=== PATIENT | female | born 1985 | race Caucasian/White ===

== ENCOUNTER 2019-03-09 12:46 | Emergency (ER) | payer BC, OTHER ==
[2019-03-09] MEDS ORDERED: ALBUTEROL 2.5 MG/3 ML NEB SOL ONE (13:42)
[2019-03-09] MEDS ORDERED: IPRATROPIUM BROM 0.5MG/2.5ML ONE (13:43)
--- NOTE | 2019-03-09 14:23 | RAD REPORT ---
EXAM DESCRIPTION: RAD - Chest Pa And Lat (2 Views) - 03/09/2019 2:12 pm CLINICAL HISTORY: COUGH, shortness of breath, flu-like symptoms COMPARISON: No comparisons TECHNIQUE: Frontal and lateral views of the chest were obtained. FINDINGS: The lungs are clear. Heart size is normal and central vasculature is within normal limit s. No pleural effusion or pneumothorax seen. No acute bony finding noted. No aortic abnormality. IMPRESSION: No acute cardiopulmonary process.
--- NOTE | 2019-03-09 15:11 | ER ---
Nurse's Notes [facility] Name: Nat Cortez Age: 33 yrs Sex: Female : 1985 Arrival Date: 03/09/2019 Time: 12:48 Bed 20 Private MD: Diagnosis: Acute upper respiratory infection, unspecified;Unspecified asthma with (acute) exacerbation Presentation: 03/09 13:04 Presenting complaint: Patient states: being seen by Dr. Rascon on Tuesday and aa5 prescribed Tamiflu and Cefuroxime. Pt states "he said I had the flu but didn't do the test for it but I am not getting any better". Pt also reports cough and reports pain to chest with cough. Pt reports taking Tylenol at 1200. Transition of care: patient was not received from another setting of care. Onset of symptoms was February 2019. Risk Assessment: Do you want to hurt yourself or someone else? Patient reports no desire to harm self or others. Initial Sepsis Screen: Does the patient meet any 2 criteria? No. Patient's initial sepsis screen is negative. Does the patient have a suspected source of infection? No. Patient's initial sepsis screen is negative. Care prior to arrival: None. 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 - Social history:: Smoking status: Patient/guardian denies using tobacco. - Ebola Screening: : No symptoms or risks identified at this time. Screenin:35 Abuse screen: Denies threats or abuse. Denies injuries from another. Nutritional hb screening: No deficits noted. Tuberculosis screening: No symptoms or risk factors identified. Fall Risk None identified. Assessment: 13:35 General: Appears in no apparent distress. Behavior is calm, cooperative. Pain: Pain hb currently is 4 out of 10 on a pain scale. Neuro: Level of Consciousness is awake, alert, obeys commands, Oriented to person, place, time, situation. Cardiovascular: Capillary refill < 3 seconds Patient's skin is warm and dry. Rhythm is regular. Respiratory: Reports cough that is non-productive, Airway is patent Respiratory effort is even, unlabored, Respiratory pattern is regular, symmetrical, Breath sounds are clear bilaterally. GI: No signs and/or symptoms were reported involving the gastrointestinal system. : No signs and/or symptoms were reported regarding the genitourinary system. EENT: No signs and/or symptoms were reported regarding the EENT system. Derm: Skin is intact. Musculoskeletal: No signs and/or symptoms reported regarding the musculoskeletal system. 14:30 Reassessment: Patient appears in no apparent distress at this time. Patient and/or hb family updated on plan of care and expected duration. Pain level reassessed. Patient is alert, oriented x 3, equal unlabored respirations, skin warm/dry/pink. 15:23 Reassessment: Patient appears in no apparent distress at this time. Patient and/or hb family updated on plan of care and expected duration. Pain level reassessed. Patient is alert, oriented x 3, equal unlabored respirations, skin warm/dry/pink. Vital Signs: 13:07 BP 117 / 86; Pulse 88; Resp 18 S; Temp 98.9(O); Pulse Ox 99% on R/A; Weight 70.31 kg aa5 (R); Height 5 ft. 3 in. (160.02 cm) (R); Pain 4/10; 15:00 BP 112 / 80; Pulse 84; Resp 16; Pulse Ox 100% on R/A; hb 13:07 Body Mass Index 27.46 (70.31 kg, 160.02 cm) aa5 ED Course: 12:48 Patient arrived in ED. as 13:04 Arm band placed on. aa5 13:06 Triage completed. aa5 13:26 Brandyn Rausch PA is PHCP. cp 13:27 Brandyn Delgado MD is Attending Physician. cp 13:35 Patient has correct armband on for positive identification. Bed in low position. Call hb light in reach. 13:39 Mary Momin, PHOEBE is Primary Nurse. hb 14:10 XRAY Chest Pa And Lat (2 Views) In Process Unspecified. EDMS 15:24 No provider procedures requiring assistance completed. Patient did not have IV access hb during this emergency room visit. Administered Medications: 13:45 Drug: Albuterol 2.5 mg Route: Inhalation; hb 14:40 Follow up: Response: No adverse reaction hb 13:45 Drug: AtroVENT Aerosol 0.5 mg Route: Inhalation; hb 14:40 Follow up: Response: No adverse reaction hb 15:12 Drug: Tessalon Perle 200 mg Route: PO; hb 15:22 Follow up: Response: Medication administered at discharge. hb Outcome: 15:10 Discharge ordered by MD. cp 15:24 Discharged to home ambulatory. hb 15:24 Condition: stable 15:24 Discharge instructions given to patient, Instructed on discharge instructions, follow up and referral plans. medication usage, Demonstrated understanding of instructions, follow-up care, medications, Prescriptions given X 4. 15:38 Patient left the ED. hb Signatures: Dispatcher [employer] EDYee Parker Audri, RN RN aa5 Brandyn Rausch PA PA Mary Millard, RN RN hb
--- NOTE | 2019-03-09 15:11 | EDPHYS ---
Physician Documentation [facility] Name: Nat Cortez Age: 33 yrs Sex: Female : 1985 Arrival Date: 03/09/2019 Time: 12:48 Bed 20 Private MD: DICKSON Physician Brandyn Delgado HPI: 03/09 13:45 This 33 yrs old Female presents to ER via Ambulatory with complaints of cp Shortness Of Breath - flu+. 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 - Social history:: Smoking status: Patient/guardian denies using tobacco. - Ebola Screening: : No symptoms or risks identified at this time. ROS: 14:00 Constitutional: Negative for body aches, chills, fever, poor PO intake. cp 14:00 Eyes: Negative for injury, pain, redness, and discharge. cp 14:00 ENT: Positive for sore throat, Negative for drainage from ear(s), ear pain, difficulty swallowing, difficulty handling secretions. 14:00 Cardiovascular: Positive for chest pain, with cough, Negative for edema, palpitations. 14:00 Respiratory: Positive for cough, "sounds productive". 14:00 Abdomen/GI: Negative for abdominal pain, vomiting, diarrhea, constipation. 14:00 Back: Negative for pain at rest, pain with movement. 14:00 : Negative for urinary symptoms. 14:00 Skin: Negative for rash. 14:00 Neuro: Negative for altered mental status, headache, weakness. 14:00 All other systems are negative. Exam: 14:10 Head/Face: Normocephalic, atraumatic. cp 14:10 Constitutional: The patient appears in no acute distress, alert, awake, non-toxic, well developed, well nourished. 14:10 Eyes: Periorbital structures: appear normal, Conjunctiva: normal, no exudate, no injection, Lids and lashes: appear normal, bilaterally. 14:10 ENT: External ear(s): are unremarkable, Ear canal(s): are normal, clear, TM's: bulging, is not appreciated, bilaterally, dullness, bilaterally, erythema, is not appreciated, bilaterally, Nose: is normal, Mouth: Lips: moist, Oral mucosa: moist, Posterior pharynx: Airway: no evidence of obstruction, patent, Tonsils: no enlargement, no exudate, swelling, is not appreciated, erythema, that is mild, exudate, is not appreciated. 14:10 Neck: ROM/movement: is normal, no meningismus, no nuchal rigidity. 14:10 Chest/axilla: Inspection: normal, Palpation: is normal, no crepitus, no tenderness. 14:10 Cardiovascular: Rate: normal, Rhythm: regular, Edema: is not appreciated, JVD: is not appreciated. 14:10 Respiratory: the patient does not display signs of respiratory distress, Respirations: normal, no use of accessory muscles, no retractions, no splinting, no tachypnea, labored breathing, is not present, Breath sounds: bronchial sounds, that are mild, are heard diffusely, decreased breath sounds, are not appreciated, stridor, is not appreciated, + upper airway congestion. wheezing: that is mild, is heard diffusely. 14:10 Abdomen/GI: Exam negative for discomfort, distension, guarding, Inspection: abdomen appears normal. 14:10 Back: pain, is absent, ROM is normal. Vital Signs: 13:07 BP 117 / 86; Pulse 88; Resp 18 S; Temp 98.9(O); Pulse Ox 99% on R/A; Weight 70.31 kg aa5 (R); Height 5 ft. 3 in. (160.02 cm) (R); Pain 4/10; 15:00 BP 112 / 80; Pulse 84; Resp 16; Pulse Ox 100% on R/A; hb 13:07 Body Mass Index 27.46 (70.31 kg, 160.02 cm) aa5 MDM: 13:28 Patient medically screened. [facility] 14:28 Data reviewed: vital signs, nurses notes, lab test result(s), radiologic studies, plain cp films. 03/09 13:37 Order name: Influenza Screen (a \\T\\ B); Complete Time: 14:13 03/09 14:13 Interpretation: Reviewed. 03/09 13:37 Order name: XRAY Chest Pa And Lat (2 Views); Complete Time: 14:28 03/09 14:28 Interpretation: Report reviewed. cp Administered Medications: 13:45 Drug: Albuterol 2.5 mg Route: Inhalation; hb 14:40 Follow up: Response: No adverse reaction hb 13:45 Drug: AtroVENT Aerosol 0.5 mg Route: Inhalation; hb 14:40 Follow up: Response: No adverse reaction hb 15:12 Drug: Tessalon Perle 200 mg Route: PO; hb 15:22 Follow up: Response: Medication administered at discharge. hb Disposition: 03/09/19 15:10 Discharged to Home. Impression: Acute upper respiratory infection, unspecified, Unspecified asthma with (acute) exacerbation. - Condition is Stable. - Discharge Instructions: Asthma, Adult, Upper Respiratory Infection, Adult. - Prescriptions for Symbicort 80- 4.5 mcg/actuation Inhalation HFA aerosol inhaler - inhale 2 puff by INHALATION route 2 times per day; 1 Inhaler. Tessalon Perles 100 mg Oral Capsule - take 2 capsule by ORAL route every 8 hours As needed; 20 capsule. Prednisone 20 mg Oral Tablet - take 2 tablet by ORAL route once daily for 5 days; 10 tablet. Albuterol Sulfate 90 mcg/actuation - inhale 1-2 puff by INHALATION route every 4-6 hours; 1 Inhaler. - Medication Reconciliation Form, Thank You Letter, Antibiotic Education, Prescription Opioid Use form. - Follow up: Private Physician; When: 2 - 3 days; Reason: Recheck today's complaints. - Problem is new. - Symptoms have improved. Addendum: 03/12/2019 08:11 Co-signature as Attending Physician, Brandyn Delgado MD I agree with the assessment and c huddleston plan of care. Signatures: Dispatcher [employer] Brandyn Villalobos MD MD cha Calderon, Audri, RN RN aa5 Brandyn Rausch PA PA Mary Millard, PHOEBE RN Corrections: (The following items were deleted from the chart) 03/09 15:18 15:10 03/09/2019 15:10 Discharged to Home. Impression: Acute upper respiratory cp infection, unspecified. Condition is Stable. Forms are Medication Reconciliation Form, Thank You Letter, Antibiotic Education, Prescription Opioid Use. Follow up: Private Physician; When: 2 - 3 days; Reason: Recheck today's complaints. Problem is new. Symptoms have improved. cp 15:38 15:18 03/09/2019 15:10 Discharged to Home. Impression: Acute upper respiratory hb infection, unspecified; Unspecified asthma with (acute) exacerbation. Condition is Stable. Discharge Instructions: Upper Respiratory Infection, Adult, Asthma, Adult. Prescriptions for Symbicort 80-4.5 mcg/actuation Inhalation HFA aerosol inhaler - inhale 2 puff by INHALATION route 2 times per day; 1 Inhaler, Tessalon Perles 100 mg Oral Capsule - take 2 capsule by ORAL route every 8 hours As needed; 20 capsule, Prednisone 20 mg Oral Tablet - take 2 tablet by ORAL route once daily for 5 days; 10 tablet, Albuterol Sulfate 90 mcg/actuation - inhale 1-2 puff by INHALATION route every 4-6 hours; 1 Inhaler. and Forms are Medication Reconciliation Form, Thank You Letter, Antibiotic Education, Prescription Opioid Use. Follow up: Private Physician; When: 2 - 3 days; Reason: Recheck today's complaints. Problem is new. Symptoms have improved. cp
[2019-03-09] MEDS ORDERED: BENZONATATE 100 MG CAP PO ONE (15:13)
[2019-03-09 17:14] VITALS: TEMP 98.9
[2019-03-09 17:16] VITALS: BP 112/80; O2SAT 100
== END 2019-03-09 15:38 | disposition home or self-care (01) ==
LOC: ER 12:46
DX: J06.9 Acute upper respiratory infection, unspecified (principal); J45.901 Unspecified asthma with (acute) exacerbation
CPT/HCPCS: 71046; 87804; 99284

== ENCOUNTER 2020-12-08 15:00 | Emergency (ER) | payer BC, OTHER ==
[2020-12-08] MEDS ORDERED: IBUPROFEN 400 MG TAB ONE (16:31)
[2020-12-08] MEDS ORDERED: IBUPROFEN 200 MG TAB PO ONE (16:31)
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
--- NOTE | 2020-12-08 16:58 | RAD REPORT ---
EXAM DESCRIPTION: RAD - Femur Left - 12/08/2020 4:37 pm CLINICAL HISTORY: Left leg pain FINDINGS: No fracture is seen
--- NOTE | 2020-12-08 16:59 | RAD REPORT ---
EXAM DESCRIPTION: RAD - Humerus Right - 12/08/2020 4:37 pm CLINICAL HISTORY: Right arm pain FINDINGS: No fracture is seen
--- NOTE | 2020-12-08 16:59 | RAD REPORT ---
EXAM DESCRIPTION: RAD - Humerus Left - 12/08/2020 4:37 pm CLINICAL HISTORY: Left arm pain FINDINGS: No fracture is seen
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
[2020-12-08 17:32] VITALS: BP 119/97; TEMP 97.2; O2SAT 100
== END 2020-12-08 17:26 | disposition home or self-care (01) ==
LOC: ER 15:00
DX: R10.84 Generalized abdominal pain (principal); M79.622 Pain in left upper arm; M79.621 Pain in right upper arm; V49.40XA Driver injured in collision with unspecified motor vehicles in traffic accident, initial encounter; Z88.8 Allergy status to other drugs, medicaments and biological substances
CPT/HCPCS: 70450; 72125; 71260; 74177; 73060 ×2; 73552; 99284; Q9967

== ENCOUNTER 2024-04-02 17:18 | Emergency (ER) | payer OTHER ==
--- OUTSIDE RECORDS SUMMARY | 2024-04-02 17:21 | XMS REPORT | Continuity of Care Document ---
Author Name Unknown Address [address] [facility] [address] [place] [address] [facility] Address [address] [facility] [facility] [address] [address] [place] [address] Care Team Providers Care Ophthalmology Technician Name Role Phone Anjana Servin Attending Clinician Unavailable Marissa Sarmiento Attending Clinician Unavailrama e Anjana Servin Admitting Clinician Unavailable Marissa Sarmiento Admitting Clinician Unavailabl e Payers Payer Name Policy Type Policy Number Effective Date Expirati on Date Source Allergies, Adverse Reactions, Alerts Allergy Name Allergy Type Status Severity Reaction(s) Onset Date Inactive Date Treating Clinician Comments Source dextrome thorphan HBr DA Active [place] HIVES 24 00:00: 00 [facility] pseudoep hedrine HCl DA Active [place] HIVES 3-24 00:00: 00 [facility] acetamin ophen DA Active [place] HIVES 324 00:00: 00 [facility] doxylami ne DA Active [place] HIVES 324 00:00: 00 [facility] dextrome thorphan HBr DA Active [place] 324 00:00: 00 [facility] pseudoep hedrine HCl DA Active [place] 324 00:00: 00 [facility] acetamin ophen DA Active [place] 324 00:00: 00 [facility] doxylami ne DA Active [place] 24 00:00: 00 [facility] dextrome thorphan HBr DA Active [place] HIVES 19 00:00: 00 [facility] pseudoep hedrine HCl DA Active [place] HIVES 04-18 00:00: 00 [facility] acetamin ophen DA Active [place] HIVES 04-18 00:00: 00 [facility] doxylami ne DA Active [place] HIVES 04-18 00:00: 00 [facility] dextrome thorphan HBr DA Active [place] 04-18 00:00: 00 [facility] pseudoep hedrine HCl DA Active [place] 04-18 00:00: 00 [facility] acetamin ophen DA Active [place] 04-18 00:00: 00 [facility] doxylami ne DA Active [place] 04-18 00:00: 00 [facility] Procedures Procedure Date / Time Performed Performing Clinicia n Source [id number] 2020-08-20 00:00:00 [facility] [id number] 2020-08-20 00:00:00 [facility]BPR [facility] [id number] 2020-08-20 00:00:00 DEBPR [facility] [id number] 2020-05-22 00:00:00 HAIZI [facility] Encounters Start Date/Time End Date/Time Encounter Type Admission Type Attending Clinicians Care Facility Care Department Encounter ID Source 2020-05-30 02:42:17 Inpatient Anjana Lopes [facility] [id number] 2020-08-20 07:39:00 2020-08-22 10:40:00 Inpatient Marissa Romeo [facility] [id number] [facility] 2020-05-21 14:45:57 2020-05-21 14:45:57 Outpatient Anjana Servin [facility] [id number] [facility] Results Test Description Test Time Test Comments Results Result Co mments Source HGB [id number] 07:47:00* Test Item Value Reference Range Interpretation Comme nts HEMOGLOBIN (test code = HGB) 7.9 g/dL 10.1-13.8 L Results verified by repeat analysis HEMATOCRIT (test code = HCT) 25.2 % 32.5-41.8 L Results verified by repeat analysis AG HEPATITIS B [id number] 09:23:00* Test Item Value Reference Range Interpretation Comme nts AG HEPATITIS B SURFACE (test code = HBSAG) NONREACTIVE NONREACTIVE IS CONSENT FORM SIGNED FOR HIV TESTING? YAB HEPATITIS C [id number] 09:23:00* Test Item Value Reference Range Interpretation Comme nts AB HEPATITIS C (test code = HCVAB) NONREACTIVE NONREACTIVE SIGNAL TO CUTOFF (test code = CUTOFF) 0.04 <0.80 N IS CONSENT FORM SIGNED FOR HIV TESTING? YAB [id number] 09:23:00* Test Item Value Reference Range Interpretation Comme nts AB TREPONEMA (test code = TREPAB) NONREACTIVE NONREACTIVE IS CONSENT FORM SIGNED FOR HIV TESTING? YAB HIV 1 09:23:00* Test Item Value Reference Range Interpretation Comme nts AB HIV 1 2 (test code = [id number]) NONREACTIVE NONREACTIVE Done by [employer] HIV Ag/Ab Combo Screen IS CONSENT FORM SIGNED FOR HIV TESTING? YAG HEPATITIS B [id number] 08:56:00* Test Item Value Reference Range Interpretation Comme nts AG HEPATITIS B SURFACE (test code = HBSAG) NONREACTIVE NONREACTIVE IS CONSENT FORM SIGNED FOR HIV TESTING? YAB HEPATITIS C [id number] 08:56:00* Test Item Value Reference Range Interpretation Comme nts AB HEPATITIS C (test code = HCVAB) NONREACTIVE SIGNAL TO CUTOFF (test code = CUTOFF) <0.80 IS CONSENT FORM SIGNED FOR HIV TESTING? YAB [id number] 08:56:00* Test Item Value Reference Range Interpretation Comme nts AB TREPONEMA (test code = TREPAB) NONREACTIVE NONREACTIVE IS CONSENT FORM SIGNED FOR HIV TESTING? YAB HIV 1 08:56:00* Test Item Value Reference Range Interpretation Comme nts AB HIV 1 2 (test code = [id number]) NONREACTIVE IS CONSENT FORM SIGNED FOR HIV TESTING? YCOMPREHENSIVE METABOLIC [id number] 08:43:00* Test Item Value Reference Range Interpretation Comme nts SODIUM (test code = NA) 140 mEq/L 135-145 N POTASSIUM (test code = K) 3.5 mEq/L 3.5-5.0 N CHLORIDE (test code = CL) 104 mEq/L 100-115 N CARBON DIOXIDE (test code = CO2) 23 mEq/L 22-31 N ANION GAP (test code = GAP) 16.10 10-20 N GLUCOSE (test code = GLU) 98 mg/dL 65-110 N BLOOD UREA NITROGEN (test co de = BUN) 9 mg/dL 7-18 N GLOMERULAR FILTRATION RATE ( test code = GFR) 96 ml/min >60 N CREATININE (test code = CREAT) 0.7 mg/dL 0.5-1.0 N TOTAL PROTEIN (test code = PROT) 6.9 gm/dL 6.3-8.2 N ALBUMIN (test code = ALB) 2.9 gm/dL 3.4-4.8 L CALCIUM (test code = CA) 8.6 mg/dL 8.4-10.2 N BILIRUBIN TOTAL (test code = BILT) 0.2 mg/dL 0.2-1.0 N SGOT/AST (test code = AST) 14 units/L 15-37 L SGPT/ALT (test code = ALT) 13 units/L 12-78 N ALKALINE PHOSPHATASE TOTAL ( test code = ALKP) 116 units/L 46-116 N CBC W/AUTO [id number] 08:22:00* Test Item Value Reference Range Interpretation Comme nts WHITE BLOOD CELL (test code = WBC) 10.9 K/mm3 6.5-12.3 N RED BLOOD CELL (test code = RBC) 3.72 M/mm3 3.51-4.69 N HEMOGLOBIN (test code = HGB) 9.9 g/dL 10.1-13.8 L HEMATOCRIT (test code = HCT) 32.0 % 32.5-41.8 L MEAN CELL VOLUME (test code = MCV) 86.0 fL 84.6-96.6 N MEAN CELL HGB (test code = MCH) 26.6 pg 27.3-33.9 L MEAN CELL HGB CONCETRATION ( test code = MCHC) 30.9 gm/dL 32.0-34.2 L RED CELL DISTRIBUTION WIDTH (test code = RDW) 13.4 % 12.2-16.3 N PLATELET COUNT (test code = PLT) 295 K/mm3 134-363 N MEAN PLATELET VOLUME (test c ode = MPV) 10.2 fL 9.2-12.7 N NEUTROPHIL % (test code = NT%) 70.0 % 57.9-77.3 N LYMPHOCYTE % (test code = LY%) 19.2 % 14.5-29.7 N MONOCYTE % (test code = MO%) 9.3 % 3.6-10.2 N EOSINOPHIL % (test code = EO%) 0.6 % 0.0-3.0 N BASOPHIL % (test code = BA%) 0.2 % 0.1-0.9 N NEUTROPHIL # (test code = NT#) 7.6 K/mm3 LYMPHOCYTE # (test code = LY#) 2.1 K/mm3 MONOCYTE # (test code = MO#) 1.0 K/mm3 EOSINOPHIL # (test code = EO#) 0.07 K/mm3 BASOPHIL # (test code = BA#) 0.0 K/mm3 RBC MORPHOLOGY REQUIRED (janet t code = RBCM) NORMAL NORMAL PLATELET MORPHOLOGY REQUIRED (test code = PLTMR) NORMAL NORMAL COVID 19 Asymptomatic IH [id number] 22:04:00* Test Item Value Reference Range Interpretation Comme nts COVID 19 Asymptomatic IH AG (test code = COVNONPUIAG) NEGATIVE NEGATIVE This test has be en authorized only for the detection ofproteins from SARS-CoV-2, not for any other viruses orpathogens. Negative results should be treated as presumptive andconfirmed with a molecular assay, if necessary for patientmanagement. Negative results do not rule out COVID-19 andshould not be used as the sole basis for treatment orpatient management decisions, including infection controldecisions. Negative results should be considered in thecontext of a patient's recent exposures, history and thepresence of clinical signs and symptoms consistent withCOVID-19. This test has not been FDA cleared or approved; the test hasbeen authorized by FDA under an Emergency Use Authorization(EUA) for use by laboratories certified under the CLIA thatmeet the requirements to perform moderate, high or waivedcomplexity tests. This test is authorized for use at thePoint of Care (POC), i.e., in patient care settingsoperating under a CLIA Certificate of Waiver, Certificate ofCompliance, or Certificate of Accreditation. This test is only authorized for the duration of thedeclaration that circumstances exist justifying theauthorization of emergency use of in vitro diagnostic testsfor detection and/or diagnosis of COVID-19 under Culfmfo654(b)(1) of the Act, 21 U.S.C. 360bbb-3(b)(1), unless theauthorization is terminated or revoked sooner. AG HEPATITIS B [id number] 20:38:00* Test Item Value Reference Range Interpretation Comme nts AG HEPATITIS B SURFACE (test code = HBSAG) NONREACTIVE NONREACTIVE IS CONSENT FORM SIGNED FOR HIV TESTING? YAB HEPATITIS C [id number] 20:38:00* Test Item Value Reference Range Interpretation Comme nts AB HEPATITIS C (test code = HCVAB) NONREACTIVE NONREACTIVE SIGNAL TO CUTOFF (test code = CUTOFF) 0.02 <0.80 N IS CONSENT FORM SIGNED FOR HIV TESTING? YAB [id number] 20:38:00* Test Item Value Reference Range Interpretation Comme nts AB TREPONEMA (test code = TREPAB) NONREACTIVE NONREACTIVE IS CONSENT FORM SIGNED FOR HIV TESTING? YAB HIV 1 20:38:00* Test Item Value Reference Range Interpretation Comme nts AB HIV 1 2 (test code = [id number]) NONREACTIVE NONREACTIVE Done by [employer] HIV Ag/Ab Combo Screen IS CONSENT FORM SIGNED FOR HIV TESTING? YCBC W/AUTO [id number] 20:29:00* Test Item Value Reference Range Interpretation Comme nts WHITE BLOOD CELL (test code = WBC) 12.1 K/mm3 6.5-12.3 N RED BLOOD CELL (test code = RBC) 3.47 M/mm3 3.51-4.69 L HEMOGLOBIN (test code = HGB) 10.5 g/dL 10.1-13.8 N HEMATOCRIT (test code = HCT) 31.7 % 32.5-41.8 L MEAN CELL VOLUME (test code = MCV) 91.4 fL 84.6-96.6 N MEAN CELL HGB (test code = MCH) 30.3 pg 27.3-33.9 N MEAN CELL HGB CONCETRATION ( test code = MCHC) 33.1 gm/dL 32.0-34.2 N RED CELL DISTRIBUTION WIDTH (test code = RDW) 13.3 % 12.2-16.3 N PLATELET COUNT (test code = PLT) 266 K/mm3 134-363 N IMMATURE PLATELET FRACTION ( test code = IPF) 2.5 % 0.0-10.8 N MEAN PLATELET VOLUME (test c ode = MPV) 10.3 fL 9.2-12.7 N NEUTROPHIL % (test code = NT%) 79.6 % 57.9-77.3 H LYMPHOCYTE % (test code = LY%) 13.5 % 14.5-29.7 L MONOCYTE % (test code = MO%) 6.1 % 3.6-10.2 N EOSINOPHIL % (test code = EO%) 0.3 % 0.0-3.0 N BASOPHIL % (test code = BA%) 0.1 % 0.1-0.9 N NEUTROPHIL # (test code = NT#) 9.6 K/mm3 LYMPHOCYTE # (test code = LY#) 1.6 K/mm3 MONOCYTE # (test code = MO#) 0.7 K/mm3 EOSINOPHIL # (test code = EO#) 0.04 K/mm3 BASOPHIL # (test code = BA#) 0.0 K/mm3 RBC MORPHOLOGY REQUIRED (janet t code = RBCM) NORMAL NORMAL PLATELET MORPHOLOGY REQUIRED (test code = PLTMR) NORMAL NORMAL AG HEPATITIS B [id number] 20:06:00* Test Item Value Reference Range Interpretation Comme nts AG HEPATITIS B SURFACE (test code = HBSAG) NONREACTIVE NONREACTIVE IS CONSENT FORM SIGNED FOR HIV TESTING? YAB HEPATITIS C [id number] 20:06:00* Test Item Value Reference Range Interpretation Comme nts AB HEPATITIS C (test code = HCVAB) NONREACTIVE SIGNAL TO CUTOFF (test code = CUTOFF) <0.80 IS CONSENT FORM SIGNED FOR HIV TESTING? YAB [id number] 20:06:00* Test Item Value Reference Range Interpretation Comme nts AB TREPONEMA (test code = TREPAB) NONREACTIVE NONREACTIVE IS CONSENT FORM SIGNED FOR HIV TESTING? YAB HIV 1 20:06:00* Test Item Value Reference Range Interpretation Comme nts AB HIV 1 2 (test code = [id number]) NONREACTIVE IS CONSENT FORM SIGNED FOR HIV TESTING? YCOVID 19 Asymptomatic IH [id number] 18:36:00* Test Item Value Reference Range Interpretation Comme nts COVID 19 Asymptomatic IH AG (test code = COVNONPUIAG) NEGATIVE NEGATIVE This test has be en authorized only for the detection ofproteins from SARS-CoV-2, not for any other viruses orpathogens. Negative results should be treated as presumptive andconfirmed with a molecular assay, if necessary for patientmanagement. Negative results do not rule out COVID-19 andshould not be used as the sole basis for treatment orpatient management decisions, including infection controldecisions. Negative results should be considered in thecontext of a patient's recent exposures, history and thepresence of clinical signs and symptoms consistent withCOVID-19. This test has not been FDA cleared or approved; the test hasbeen authorized by FDA under an Emergency Use Authorization(EUA) for use by laboratories certified under the CLIA thatmeet the requirements to perform moderate, high or waivedcomplexity tests. This test is authorized for use at thePoint of Care (POC), i.e., in patient care settingsoperating under a CLIA Certificate of Waiver, Certificate ofCompliance, or Certificate of Accreditation. This test is only authorized for the duration of thedeclaration that circumstances exist justifying theauthorization of emergency use of in vitro diagnostic testsfor detection and/or diagnosis of COVID-19 under Dqqtmcc196(b)(1) of the Act, 21 U.S.C. 360bbb-3(b)(1), unless theauthorization is terminated or revoked sooner.
--- NOTE | 2024-04-02 19:14 | RAD REPORT ---
EXAMINATION: CT HEAD WITHOUT CONTRAST CLINICAL INDICATION: Female, 38 years old.HEADACHE TECHNIQUE: Axial CT images from the skull base to the vertex without intravenous contrast. Coronal an d sagittal reformatted images were created from the data set. One or more of the following dose reduction techniques were used: Automated exposure control, adjustment of the mA and/or kV according to patient size, and/or iterative reconstruction. Unless otherwise specified, incidental findings do not require dedicated imaging follow-up. [id number]. COMPARISON: 12/08/2020 FINDINGS: INTRACRANIAL: No acute intracranial hemorrhage. No hydrocephalus. No mass effect or midline shift. No significant white matter disease. VASCULATURE: No visualized abnormalities in the arteries or dural venous sinuses. SCALP/SKULL: No significant soft tissue or osseous abnormalities. SINUSES: The visualized paranasal sinuses and mastoid air cells are predominantly clear. IMPRESSION: No acute intracranial abnormality.
[2024-04-02] MEDS ORDERED: KETOROLAC 30 MG/ML INJ ONE (20:55)
[2024-04-02] MEDS ORDERED: DIPHENHYDRAMINE 50 MG/ML VIAL ONE (20:55)
[2024-04-02] MEDS ORDERED: NA CHLORIDE 0.9% 500 ML ONE (20:55)
[2024-04-02] MEDS ORDERED: METOCLOPRAMIDE 10 MG/2mL INJ ONE (20:55)
[2024-04-02 20:59] LABS: Absolute Lymphocytes (CBC) 0.4 K/uL (0.7-4.9); Absolute Monocytes 0.7 K/uL (0.1-1.3); Absolute Neutrophil 3.6 K/uL (1.8-8.0); Basophils % 0.4 % (0-1.3); Eosinophils % 0.2 % (0-4.4); Hematocrit 33.8 % (36.0-45.0); Hemoglobin 11.1 g/dL (12.0-15.0); Lymphocytes % 9.1 % (15.3-44.8); MCH 24.8 pg (27.0-35.0); MCHC 32.9 g/dL (32.0-36.0); MCV 75.4 fL (80-100); MPV 7.8 fL (7.6-11.3); Monocytes % 13.9 % (3.3-12.3); Neutrophils % 76.4 % (41.7-73.7); Nucleated Red Blood Cells % 0.1 % (0-0); Platelets 276 thou/uL (152-406); RBC Red Blood Cell Count 4.48 M/uL (3.86-4.86); Red Cell Distribution Width 16.5 % (12.1-15.2)
[2024-04-02 21:05] LABS: Anion Gap 4.3 mEq/L (5.0-15.0); Potassium 3.3 mEq/L (3.5-5.1)
--- NOTE | 2024-04-02 22:32 | EDPHYS ---
Physician Documentation [facility] Name: Nat Cortez Age: 38 yrs Sex: Female : 1985 Arrival Date: 04/02/2024 Time: 17:18 Bed 12 Private MD: ED Physician Scot Walker HPI: 04/02 18:14 This 38 yrs old Female presents to ER via Ambulatory with complaints of ec2 Headache, Neck pain. 18:14 Patient arrives today for headache and right paraspinal neck pain. Patient complains of ec2 headache ongoing for the past 4 days. Reports neck pain is worse with movement as well. Denies any falls injuries or trauma. Patient reports no fevers or chills, no nausea or vomiting. Has been having some congestion for the past month.. Historical: - Allergies: 18:12 Nyquil; hb - PMHx: 18:12 Asthma; APS; hb - PSHx: 18:12 section; hb - Immunization history:: Adult Immunizations up to date. - Infectious Disease History:: Denies. - Social history:: Smoking status: Patient denies any tobacco usage or history of. ROS: 18:14 Constitutional: as per hpi ec2 Exam: 18:14 Constitutional: GEN: NAD Head: atraumatic Eyes: EOMI Ears: External ears are ec2 normal. CV: regular rate LUNGS: no respiratory distress ABD: non-distended SKIN: no evidence of rashes MSK: no evidence of trauma. Neck with intact range of motion. neuro: Cranial nerves II through XII intact, strength intact all 4 extremities. Vital Signs: 18:09 BP 148 / 88; Pulse 68; Resp 16; Temp 98.9(O); Pulse Ox 98% on R/A; Weight 72.57 kg; hb Height 5 ft. 3 in. ; Pain 8/10; 22:00 BP 135 / 78; Pulse 65; Resp 18 S; Pulse Ox 98% on R/A; ha1 18:09 Body Mass Index 28.34 (72.57 kg, 160.02 cm) hb 18:09 Pain Scale: Adult hb MDM: 18:08 Medical Screening Exam initiated ec2 19:33 Data reviewed: vital signs, nurses notes. ED course: Patient arrives today for head and ec2 neck pain. Examination is revealing for neuro intact individual with no alarming findings. Patient with right paraspinal TTP. No kernig or Brudzinski. ED course: Will obtain lab work, treat the patient's symptoms and further assess. Suspect viral infection. Additionally suspect headache syndrome.. 20:10 ED course: Patient signed out with pending lab work and reassessment.. ec2 22:29 ED course: EXAMINATION: CT HEAD WITHOUT CONTRAST CLINICAL INDICATION: Female, 38 years sp4 old.HEADACHE COMPARISON: 12/08/2020 FINDINGS: INTRACRANIAL: No acute intracranial hemorrhage. No hydrocephalus. No mass effect or midline shift. No significant white matter disease. VASCULATURE: No visualized abnormalities in the arteries or dural venous sinuses. SCALP/SKULL: No significant soft tissue or osseous abnormalities. SINUSES: The visualized paranasal sinuses and mastoid air cells are predominantly clear. IMPRESSION: No acute intracranial abnormality. . 04/02 18:13 Order name: CBC with Diff; Complete Time: : ec2 04/02 18:13 Order name: BMP; Complete Time: : ec2 04/02 18:13 Order name: Test, Serum; Complete Time: :22 ec2 04/02 18:45 Order name: Head Brain Wo Cont; Complete Time: 19:56 EDMS 04/02 18:13 Order name: IV; Complete Time: 20:44 ec2 Administered Medications: 21:19 Drug: metoCLOPramide IVP 20 mg IVP once; over 15 mins Route: IVP; Site: left ha1 antecubital; 22:00 Follow up: Response: No adverse reaction; Marked relief of symptoms ha1 21:21 Drug: diphenhydrAMINE IVP 50 mg IVP once Route: IVP; Site: left antecubital; ha1 22:00 Follow up: Response: No adverse reaction; Marked relief of symptoms; Pain is decreased ha1 21:23 Drug: Ketorolac IVP 15 mg IVP once Route: IVP; Site: left antecubital; ha1 22:00 Follow up: Response: No adverse reaction; Marked relief of symptoms; Pain is decreased ha1 21:24 Drug: NS 0.9% IV 500 ml 500 ml IV at 1 bolus once; to be given as a bolus over 30 ha1 minutes Volume: 500 ml; Route: IV; Rate: 1 bolus; Site: left antecubital; 22:45 Follow up: Response: No adverse reaction; IV Status: Completed infusion; IV Intake: ha1 500ml Disposition Summary: 04/02/24 22:31 Discharge Ordered Notes: Location: Home sp4 Problem: new sp4 Symptoms: have improved sp4 Condition: Stable sp4 Diagnosis - Acute Headache sp4 - Episodic tension-type headache sp4 Followup: sp4 - With: Nasim Rainey MD - When: 7 - 10 days - Reason: Recheck today's complaints Discharge Instructions: - Discharge Summary Sheet sp4 - General Headache Without Cause sp4 Forms: - Patient Portal Instructions sp4 Prescriptions: - Fioricet 50-300-40 mg Oral capsule - take 1 capsule ORAL route every 8 hours PRN headache; 30 capsule; Refills: 0, sp4 Product Selection Permitted - ondansetron 8 mg Oral Tablet,disintegrating - take 1 tablet ORAL route daily PRN nausea; 30 tablet; Refills: 0, Product sp4 Selection Permitted Signatures: Dispatcher [employer] EDMary Bergeron RN RN Tequila Dang RN RN ha1 Scot Walker MD MD sp4 Alexey Yusuf MD MD ec2 Corrections: (The following items were deleted from the chart) 18:14 18:14 Head Brain Wo [id number].RAD.BRZ ordered. EDMS EDMS
--- NOTE | 2024-04-02 22:32 | ER ---
Nurse's Notes [facility] Name: Nat Cortez Age: 38 yrs Sex: Female : 1985 Arrival Date: 04/02/2024 Time: 17:18 Bed 12 Private MD: Diagnosis: Acute Headache ;Episodic tension-type headache Presentation: 04/02 18:09 Chief complaint: Throbbing headache x 4 days, stiff neck and nausea today. Coronavirus hb screen: Client presents with at least one sign or symptom that may indicate coronavirus-19. Provider contacted for isolation considerations. Ebola Screen: No symptoms or risks identified at this time. Initial Sepsis Screen: Does the patient meet any 2 criteria? No. Patient's initial sepsis screen is negative. Does the patient have a suspected source of infection? No. Patient's initial sepsis screen is negative. Risk Assessment: Do you want to hurt yourself or someone else? Patient reports no desire to harm self or others. Onset of symptoms was March 30, 2023. 18:09 Method Of Arrival: Ambulatory hb 18:09 Acuity: TONYA 3 hb Historical: - Allergies: 18:12 Nyquil; hb - PMHx: 18:12 Asthma; APS; hb - PSHx: 18:12 section; hb - Immunization history:: Adult Immunizations up to date. - Infectious Disease History:: Denies. - Social history:: Smoking status: Patient denies any tobacco usage or history of. Screenin:00 [facility] ED Fall Risk Assessment (Adult) History of falling in the last 3 months, ha1 including since admission No falls in past 3 months (0 pts) Confusion or Disorientation No (0 pts) Intoxicated or Sedated No (0 pts) Impaired Gait No (0 pts) Mobility Assist Device Used No (0 pt) Altered Elimination No (0 pt) Score/Fall Risk Level 0 - 2 = Low Risk Oriented to surroundings, Maintained a safe environment, Educated pt \T\ family on fall prevention, incl call for assistance when getting out of bed, Hourly rounding (assess needs \T\ fall precautionary measures) done. Abuse screen: Denies threats or abuse. Denies injuries from another. Nutritional screening: No deficits noted. Tuberculosis screening: No symptoms or risk factors identified. Assessment: 19:06 Reassessment: going to wait in old ER lobby, our lobby is too loud. ll1 21:00 Reassessment: Patient and/or family updated on plan of care and expected duration. Pain ha1 level reassessed. Patient is alert, oriented x 3, equal unlabored respirations, skin warm/dry/pink. 22:45 Reassessment: Patient and/or family updated on plan of care and expected duration. Pain ha1 level reassessed. Patient is alert, oriented x 3, equal unlabored respirations, skin warm/dry/pink. Patient denies pain at this time. Patient states feeling better. Patient states symptoms have improved. Vital Signs: 18:09 BP 148 / 88; Pulse 68; Resp 16; Temp 98.9(O); Pulse Ox 98% on R/A; Weight 72.57 kg; hb Height 5 ft. 3 in. ; Pain 8/10; 22:00 BP 135 / 78; Pulse 65; Resp 18 S; Pulse Ox 98% on R/A; ha1 18:09 Body Mass Index 28.34 (72.57 kg, 160.02 cm) hb 18:09 Pain Scale: Adult hb ED Course: 17:20 Patient arrived in ED. mr 17:21 Alexey Yuusf MD is Attending Physician. ec2 18:12 Triage completed. hb 18:12 Arm band placed on. hb 19:05 Head Brain Wo Cont In Process Unspecified. EDMS 20:10 Attending Physician role handed off by Alexey Yusuf MD ec2 20:10 Scot Walker MD is Attending Physician. ec2 20:44 Test, Serum Sent. vk 20:44 BMP Sent. vk 20:44 CBC with Diff Sent. vk 20:45 Inserted saline lock: 20 gauge in left antecubital area, using aseptic technique. Blood vk collected. Flushed with 10 mL NS. 20:45 Initial lab(s) drawn, by me, sent to lab. vk 20:51 Tequila Dang RN is Primary Nurse. ha1 21:00 Patient has correct armband on for positive identification. Bed in low position. Call ha1 light in reach. Side rails up X 1. 22:30 Nasim Rainey MD is Referral Physician. sp4 22:40 No provider procedures requiring assistance completed. ha1 22:45 IV discontinued, intact, bleeding controlled, No redness/swelling at site. Pressure ha1 dressing applied. Administered Medications: 21:19 Drug: metoCLOPramide IVP 20 mg IVP once; over 15 mins Route: IVP; Site: left ha1 antecubital; 22:00 Follow up: Response: No adverse reaction; Marked relief of symptoms ha1 21:21 Drug: diphenhydrAMINE IVP 50 mg IVP once Route: IVP; Site: left antecubital; ha1 22:00 Follow up: Response: No adverse reaction; Marked relief of symptoms; Pain is decreased ha1 21:23 Drug: Ketorolac IVP 15 mg IVP once Route: IVP; Site: left antecubital; ha1 22:00 Follow up: Response: No adverse reaction; Marked relief of symptoms; Pain is decreased ha1 21:24 Drug: NS 0.9% IV 500 ml 500 ml IV at 1 bolus once; to be given as a bolus over 30 ha1 minutes Volume: 500 ml; Route: IV; Rate: 1 bolus; Site: left antecubital; 22:45 Follow up: Response: No adverse reaction; IV Status: Completed infusion; IV Intake: ha1 500ml Medication: 22:40 VIS not applicable for this client. ha1 Intake: 22:45 IV: 500ml; Total: 500ml. ha1 Outcome: 22:31 Discharge ordered by . sp4 22:45 Discharged to home ambulatory, with family, ha1 22:45 Condition: stable 22:45 Discharge instructions given to patient, family, Instructed on discharge instructions, follow up and referral plans. medication usage, Demonstrated understanding of instructions, follow-up care, medications, 22:45 Prescriptions given X 2, 22:52 Patient left the ED. ha1 Signatures: Dispatcher [employer] EDAK GrossAriella, Reg Reg mr MerrillMary RN Sylvie Kincaid RN RN ll1 Ayala, Heidy, RN RN ha1 Potepalov, Sergey, MD MD spAlexey Agudelo MD MD ec2 [place] Corrections: (The following items were deleted from the chart) 18:13 18:09 BP 148 / 88; Pulse 68bpm; Resp 16bpm; Pulse Ox 98% RA; Temp 98.9F Oral; Pain hb 9/10, Adult; hb
[2024-04-02 23:55] VITALS: BP 148/88; TEMP 98.9; O2SAT 98
== END 2024-04-02 22:52 | disposition home or self-care (01) ==
LOC: ER 17:18
DX: G44.219 Episodic tension-type headache, not intractable (principal); M54.2 Cervicalgia
CPT/HCPCS: 96361; 85025; 80048; 36415; 84703; 70450; 96375; 96374; 99284; J2765; J1200; J7040

== ENCOUNTER 2024-06-10 16:28 | Emergency (ER) | payer OTHER ==
--- OUTSIDE RECORDS SUMMARY | 2024-06-10 16:33 | XMS REPORT | Continuity of Care Document ---
Author Name Unknown Address [address] [facility] [address] [place] [address] [facility] Address [address] [facility]. [address] [place] [address] Care Team Providers Care Jeeper Operator Name Role Phone CLINT HARTMAN Primary Care Physician Anjana Key Attending Clinician Unavailable CLINT HARTMAN Attending Clinician UnavailCLINT Adhikari Attending Clinician Unavailab Ma [employer] Attending Clinician Marissa Sarmiento Attending Clinician UnavailAnjana Trejo Admitting Clinician Unavailable Marissa Sarmiento Admitting Clinician Pete wood Payers Payer Name Policy Type Policy Number Effective Date Expirati on Date Source [facility] [id number] 2023 00:00:00 Allergies, Adverse Reactions, Alerts Allergy Name Allergy Type Status Severity Reaction(s) Onset Date Inactive Date Treating Clinician Comments Source DOXYLAMI NE-DEXTR OMETHORP CORONEL DRUG Active Hives 11-20 00:00: 00 [facility] Doxylami ne-Dextr omethorp coronel Propensi ty to adverse reaction s Active Swelling 11-20 00:00: 00 [facility] dextrome thorphan HBr DA Active AL HIVES 0 324 00:00: 00 [facility] pseudoep hedrine HCl DA Active AL HIVES 0 324 00:00: 00 [facility] acetamin ophen DA Active AL HIVES 0 324 00:00: 00 [facility] doxylami ne DA Active AL HIVES 0 24 00:00: 00 [facility] dextrome thorphan HBr DA Active AL 0 24 00:00: 00 [facility] pseudoep hedrine HCl DA Active AL 0 324 00:00: 00 [facility] acetamin ophen DA Active AL 0 324 00:00: 00 [facility] doxylami ne DA Active AL 0 324 00:00: 00 [facility] dextrome thorphan HBr DA Active AL HIVES 0 19 00:00: 00 [facility] pseudoep hedrine HCl DA Active AL HIVES 0 19 00:00: 00 [facility] acetamin ophen DA Active AL HIVES 0 19 00:00: 00 [facility] doxylami ne DA Active AL HIVES 0 19 00:00: 00 [facility] dextrome thorphan HBr DA Active AL 0 19 00:00: 00 [facility] pseudoep hedrine HCl DA Active AL 0 19 00:00: 00 [facility] acetamin ophen DA Active AL 04-18 00:00: 00 [facility] doxylami ne DA Active AL 04-18 00:00: 00 [facility] Social History Social Habit Start Date Stop Date Quantity Comments Source [facility] Alcoholic beverage intake 2024-04-03 00:00:00 2024-04-03 00:00:00 .14 /d [facility] Tobacco use and exposure 2023-11-21 00:00:00 2023-11-21 00:00:00 Smokeless tobacco non-user [facility] History of Social function 2023-11-19 00:00:00 2023-11-19 00:00:00 [facility] Sex assigned at 1985 00:00:00 1985 00:00:00 [facility] Smoking Status Start Date Stop Date Source Never smoked tobacco [facility] Medications Ordered Medication Name Filled Medication Name Start Date Stop Date Current Medication? Ordering Clinician Indication Dosage Frequency Signature (SIG) Comments Components Source albuterol sulfate HFA 90 mcg/actuati on aerosol inhaler 05-15 00:00: 00 Yes [id number] 2{puff} Inhale 2 Puffs every 6 (six) hours as needed for Wheezing, Shortness of Breath or Chest tightness. [facility] montelukast 10 mg tablet 05-15 00:00: 00 Yes [id number] 10mg Take 1 tablet by mouth at bedtime. [facility] nirmatrelvi r-ritonavir (PAXLOVID) 300 mg (150 mg x 2)-100 mg tablet 04-03 00:00: 00 Yes [id number] 3{tbl} Take 3 tablets by mouth in the morning and 3 tablets in the evening. [facility] promethazin e-dextromet horphan 6.25-15 mg/5 mL syrup 04-03 00:00: 00 Yes [id number] 5mL Take 5 mL by mouth 4 (four) times daily as needed for Cough. [facility] Vital Signs Vital Name Observation Time Observation Value Comments S ource Systolic blood pressure 2024-05-15 14:42:00 117 [facility] Diastolic blood pressure 2024-05-15 14:42:00 78 mm[Hg[facility] Heart rate 2024-05-15 14:42:00 70 /min [facility] Body temperature 2024-05-15 14:42:00 36.72 Gemma [facility] Body height 2024-05-15 14:42:00 160 cm [facility] Body weight 2024-05-15 14:42:00 79.379 kg [facility] BMI 2024-05-15 14:42:00 31.00 kg/m2 [facility] Oxygen saturation in Arterial blood by Pulse oximetry 2024-05-15 14:42:00 100 /min [facility] Procedures Procedure Date / Time Performed Performing Clinicia n Source [id number] 2020-08-20 00:00:00 [facility] [id number] 2020-08-20 00:00:00 [facility]PR [facility] [id number] 2020-08-20 00:00:00 [facility] [id number] 2020-05-22 [facility] Encounters Start Date/Time End Date/Time Encounter Type Admission Type Attending Clinicians Care Facility Care Department Encounter ID Source 2020-05-30 02:42:17 Inpatient TOM Anjana Servin [facility] [id number] [facility] 2024-05-15 09:30:00 2024-05-15 09:57:35 Outpatient R CLINT HARTMAN OGECHUKWU [facility] [id number] [facility] 2024-05-15 09:30:00 2024-05-15 09:57:35 Office Visit Clint Hartman [facility] [id number] [facility] 2020-08-20 07:39:00 2020-08-22 10:40:00 Inpatient Marissa Romeo [facility] [id number] [facility] 2020-05-21 14:45:57 2020-05-21 14:45:57 Outpatient Anjana Servin [facility] [id number] [facility] Results Test Description Test Time Test Comments Results Result Co mments Source HGB [id number] 07:47:00* Test Item Value Reference Range Interpretation Comme nts HEMOGLOBIN (test code = HGB) 7.9 g/dL 10.1-13.8 L Results verified by repeat analysis HEMATOCRIT (test code = HCT) 25.2 % 32.5-41.8 L Results verified by repeat analysis AG HEPATITIS B [id number] 09:23:00* Test Item Value Reference Range Interpretation Comme nts AG HEPATITIS B SURFACE (test code = HBSAG) NONREACTIVE NONREACTIVE IS CONSENT FORM SIGNED FOR HIV TESTING? YAB HEPATITIS C [id number] 09:23:00* Test Item Value Reference Range Interpretation Comme nts AB HEPATITIS C (test code = HCVAB) NONREACTIVE NONREACTIVE SIGNAL TO CUTOFF (test code = CUTOFF) 0.04 <0.80 N IS CONSENT FORM SIGNED FOR HIV TESTING? YAB [id number] 09:23:00* Test Item Value Reference Range Interpretation Comme nts AB TREPONEMA (test code = TREPAB) NONREACTIVE NONREACTIVE IS CONSENT FORM SIGNED FOR HIV TESTING? YAB HIV 1 09:23:00* Test Item Value Reference Range Interpretation Comme nts AB HIV 1 2 (test code = [id number]) NONREACTIVE NONREACTIVE Done by [employer] 4th Gen HIV Ag/Ab Combo Screen IS CONSENT FORM SIGNED FOR HIV TESTING? YAG HEPATITIS B [id number] 08:56:00* Test Item Value Reference Range Interpretation Comme nts AG HEPATITIS B SURFACE (test code = HBSAG) NONREACTIVE NONREACTIVE IS CONSENT FORM SIGNED FOR HIV TESTING? YAB HEPATITIS C [id number] 08:56:00* Test Item Value Reference Range Interpretation Comme nts AB HEPATITIS C (test code = HCVAB) NONREACTIVE SIGNAL TO CUTOFF (test code = CUTOFF) <0.80 IS CONSENT FORM SIGNED FOR HIV TESTING? YAB [id number] 08:56:00* Test Item Value Reference Range Interpretation Comme nts AB TREPONEMA (test code = TREPAB) NONREACTIVE NONREACTIVE IS CONSENT FORM SIGNED FOR HIV TESTING? YAB HIV 1 08:56:00* Test Item Value Reference Range Interpretation Comme nts AB HIV 1 2 (test code = [id number]) NONREACTIVE IS CONSENT FORM SIGNED FOR HIV TESTING? YCOMPREHENSIVE METABOLIC [id number] 08:43:00* Test Item Value Reference Range Interpretation [...] ALKP) 116 units/L 46-116 N CBC W/AUTO [id number] 08:22:00* Test Item Value Reference Range Interpretation [...] PLTMR) NORMAL NORMAL COVID 19 Asymptomatic IH [id number] 22:04:00* Test Item Value Reference Range Interpretation [...] testsfor detection and/or diagnosis of COVID-19 under Ozjlwra405(b)(1) of the Act, 21 U.S.C. 360bbb-3(b)(1), unless theauthorization is terminated or revoked sooner. AG HEPATITIS B [id number] 20:38:00* Test Item Value Reference Range Interpretation Comme nts AG HEPATITIS B SURFACE (test code = HBSAG) NONREACTIVE NONREACTIVE IS CONSENT FORM SIGNED FOR HIV TESTING? YAB HEPATITIS C [id number] 20:38:00* Test Item Value Reference Range Interpretation Comme nts AB HEPATITIS C (test code = HCVAB) NONREACTIVE NONREACTIVE SIGNAL TO CUTOFF (test code = CUTOFF) 0.02 <0.80 N IS CONSENT FORM SIGNED FOR HIV TESTING? YAB [id number] 20:38:00* Test Item Value Reference Range Interpretation Comme nts AB TREPONEMA (test code = TREPAB) NONREACTIVE NONREACTIVE IS CONSENT FORM SIGNED FOR HIV TESTING? YAB HIV 1 20:38:00* Test Item Value Reference Range Interpretation Comme nts AB HIV 1 2 (test code = [id number]) NONREACTIVE NONREACTIVE Done by [employer] 4th Gen HIV Ag/Ab Combo Screen IS CONSENT FORM SIGNED FOR HIV TESTING? YCBC W/AUTO [id number] 20:29:00* Test Item Value Reference Range Interpretation [...] = PLTMR) NORMAL NORMAL AG HEPATITIS B [id number] 20:06:00* Test Item Value Reference Range Interpretation Comme nts AG HEPATITIS B SURFACE (test code = HBSAG) NONREACTIVE NONREACTIVE IS CONSENT FORM SIGNED FOR HIV TESTING? YAB HEPATITIS C [id number] 20:06:00* Test Item Value Reference Range Interpretation Comme nts AB HEPATITIS C (test code = HCVAB) NONREACTIVE SIGNAL TO CUTOFF (test code = CUTOFF) <0.80 IS CONSENT FORM SIGNED FOR HIV TESTING? YAB [id number] 20:06:00* Test Item Value Reference Range Interpretation Comme nts AB TREPONEMA (test code = TREPAB) NONREACTIVE NONREACTIVE IS CONSENT FORM SIGNED FOR HIV TESTING? YAB HIV 1 20:06:00* Test Item Value Reference Range Interpretation Comme nts AB HIV 1 2 (test code = [id number]) NONREACTIVE IS CONSENT FORM SIGNED FOR HIV TESTING? YCOVID 19 Asymptomatic IH [id number] 18:36:00* Test Item Value Reference Range Interpretation [...] testsfor detection and/or diagnosis of COVID-19 under Zbccuwi418(b)(1) of the Act, 21 U.S.C. 360bbb-3(b)(1), unless theauthorization is terminated or revoked sooner. Notes Date/Time Note Provider Source 2020-08-22 06:08:00 [facility] OB Postpart Progr Note REPORT#:[id number] REPORT STATUS: Signed DATE:08/22/20 TIME: 0608 PATIENT: SHORTY GUTIERREZ UNIT #: [id number] ROOM/BED: [address] : [address] AGE: 34 SEX: F ATTEND: Marissa Sarmiento MD ADM AUTHOR: Francesca Almanza MD * ALL edits or amendments must be made on the electronic/computer document * Subjective Subjective Admission EGA: Weeks: 36 Days: 3 EGA at delivery (wks/days): 36 weeks (3 days) Status/day: post , post operative (2) Patient reports: Patient reports: No: complaints. Objective Nursing Documentation Review Nursing data: Laboratory Tests: 08/21 0703 Hematology Hgb (10.1 - 13.8 g/dL) 7.9 L Hct (32.5 - 41.8 %) 25.2 L Vital Signs Date Temp Pulse Resp B/P B/P Mean Pulse Ox FiO2 08/21-08/22 98.1-98.3 69-76 18 98-106/63-68 The data set between the solid lines has been imported from nursing documentation. Any exceptions have been noted below under Provider comments. Feeding preference: Post hemorrhage risk score: High Risk for Hemorrhage. Provider comments on imported nursing data: [] Physical Exam Abdomen: soft, no abnormal tenderness, no guarding Incision site: well approximated edges, no drainage, no inflammation Uterus: involution appropriate, non-tender Lochia: normal Lower extremities: Edema: none Diagnosis, Assessment Plan Diagnosis, Assessment Plan Free text A P: 34 yo POD#2 s/p rLTCS, BS, and cerclage removal. 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 Patient is recovering appropriately. Awaiting return of bowel function. Continue Lovenox for DVT ppx 6 weeks . Iron supplement for anemia, denies anemia sx. Assessment: nml progress, acute blood loss anemia (iron supplement) Plan: routine care, discharge today, DVT ppx with Lovenox at 0812 RPT #:[id number] END OF REPORT [facility] 2020-08-21 08:17:00 [facility] OB Postpart Progr Note REPORT#:[id number] REPORT STATUS: Signed DATE:08/21/20 TIME: 816 PATIENT: SHORTY GUTIERREZ UNIT #: [id number] ROOM/BED: [address] : 85 AGE: 34 SEX: F ATTEND: Marissa Sarmiento MD ADM AUTHOR: Marissa Sarmiento MD * ALL edits or amendments must be made on the electronic/computer document * Subjective Subjective Admission EGA: Weeks: 36 Days: 3 EGA at delivery (wks/days): 36 weeks (3 days) Status/Day: post operative (day 1) Comments: Patient doing well. Pain controlled. Spontaneously voiding without dysuria. without difficulty. Denies PIH or anemia sx. Objective General VS: Vital Signs: Date Time Temp Pulse Resp B/P B/P Pulse O2 O2 Flow FiO2 Mean Ox Delivery Rate 08/21 0335 98.7 70 18 113/72 08/20 2345 98.4 75 18 104/66 08/20 2009 98.4 71 18 103/67 08/20 1425 98.4 62 115/77 98 08/20 1325 97.8 62 107/74 98 08/20 1300 81.0 08/20 1300 69 30 112/66 98 08/20 1245 89.0 08/20 1245 64 26 115/71 95 08/20 1230 85.0 08/20 1230 57 17 110/75 97 08/20 1215 84.0 08/20 1215 69 19 120/61 96 08/20 1200 77.0 08/20 1200 76 44 113/55 93 08/20 1145 85.0 08/20 1145 62 26 124/59 96 08/20 1130 79.0 08/20 1130 66 12 111/58 96 08/20 1116 81.0 08/20 1116 120/61 08/20 1115 69 22 94 08/20 1101 87.0 08/20 1101 18 113/70 08/20 1100 69 32 94 08/20 1043 79.0 08/20 1043 97.6 64 13 111/63 95 PATIENT WEIGHT: Weight (lb): 165 Weight (oz): Weight (kg): 74.843 Physical Exam Abdomen: soft, no guarding, no rebound tenderness Incision site: well approximated edges, dry, no drainage, no inflammation Uterus: firm, involution appropriate, non-tender Fundus: firm, below the umbilicus, non-tender Lochia: normal Lower extremities: Edema: trace Result Findings/Data: Laboratory Tests: 08/21 0703 Hematology Hgb (10.1 - 13.8 g/dL) 7.9 L Hct (32.5 - 41.8 %) 25.2 L Diagnosis, Assessment Plan Diagnosis, Assessment Plan Free text A P: 34 yo POD#1 s/p rLTCS, BS, and cerclage removal. 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 Patient is recovering appropriately. Awaiting return of bowel function. Continue Lovenox for DVT ppx 6 weeks . Iron supplement for anemia, denies anemia sx. Assessment: nml progress, acute blood loss anemia (iron supplement) Plan: routine care, discharge tomorrow, DVT ppx with Lovenox at 0828 RPT #:[id number] END OF REPORT [facility] 2020-08-20 09:33:00 [facility] ([facility] OB Delivery Note REPORT#:[id number] REPORT STATUS: Signed DATE:08/20/20 TIME: 932 PATIENT: SHORTY GUTIERREZ UNIT #: [id number] ROOM/BED: [facility] : 85 AGE: 34 SEX: F ATTEND: Marissa Sarmiento MD ADM AUTHOR: Marissa Sarmiento MD * ALL edits or amendments must be made on the electronic/computer document * OB Delivery Pre-delivery evaluation at delivery: team Admission EGA: Weeks: 36 Days: 3 Steroids Prior to Delivery Steroids prior to delivery: yes, earlier in Baby A Information Baby A information Delivery date: 08/20/20 Delivery time: 100 status: live born Wt of baby (grams): 2740 Wt of baby (lbs/oz): 6/1 Gender: female 1 minute: 8 5 minutes: 8 Presentation: vertex Operative Note-Full )(Start date: 08/20/20 )(Pre-procedure diagnosis: prior section x 3, hx of IUFD at 37 weeks in prior , cervical shortening, hx recurrent loss, satisfied parity )(Post-procedure diagnosis: same as pre-procedure dx )(Procedures performed: repeat low transverse section, bilateral salpingectomy, removal of cerclage )(Technique/Procedure: The patient was taken to the operating room with IV in place. Ancef was given preoperatively. Spinal anesthesia was placed without difficulty. The patient was placed supine with left pelvic tilt. A Mora catheter was placed into the bladder. She was prepped and draped in the usual sterile manner. A Pfannenstiel incision was carried out with the knife followed by the bovie down to the rectus fascia. The fascia was incised in the midline and extended with the bovie. The fascia was bluntly and sharply dissected from the rectus muscles , first superiorly then inferiorly. The rectus muscles were sharply in the midline. The peritoneum was entered and extended superiorly and inferiorly. The bladder blade was inserted and the vesicouterine peritoneum lifted up, incised in the midline and the incision extended in a curvilinear fashion with Metzenbaum scissors. The bladder blade was replaced. The scalpel was used to make a 4 cm transverse incision in the lower uterine segment. The incision was extended transversely. Care was taken to avoid injury to the or uterine vessels. Clear amniotic fluid was encountered. The infant's head was guided toward the hysterotomy incision and gentle fundal pressure was applied. The head was delivered followed by the remainder of the . The mouth and nares were suctioned, the cord was doubly clamped and cut. The infant was handed off to the awaiting [facility] certified personnel. Dilute oxytocin was infused. The placenta was removed manually, inspected and appeared intact. The uterus was exteriorized. The uterine cavity was palpated and small fragments of membranes were removed. The cerclage was palpated and removed. Gloves were changed following. The uterine incision was repaired with #0 vicryl in a running locking fashion. There were no signs of bleeding. The uterus, tubes and ovaries appeared normal. Bilateral salpingectomies were then performed. On the right side, the fallopian tube was identified and followed to fimbriated end. The underlying mesosalpinx was serially clamped, cut, and ligated with -2-0 chromic gut up until corneal insertion. The corneal portion of the tube was cross-clamped, excised, and pedicle was tied. The same procedure was followed on the left side. Good hemostasis was noted. The tubes were sent to pathology. The uterus was replaced into the peritoneal cavity. The pericolic gutters were examined and small blood clots were removed. The hysterotomy incision, peritoneum, and rectus muscles were examined to be hemostatic. The rectus muscle was reapproximated with #2-0 vicryl interrupted sutures. The fascia was repaired with # 0 vicryl . The subcutaneous fat was irrigated and small bleeders were bovied. The subcutaneous tissue was reapproximated with # 3-0 plain gut suture. The skin was reapproximated with skin running subcuticular # 3-0 monocryl. Sponge and needle counts were correct on 2 counts. The patient was transferred to the recovery room in good condition. 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 Patient also endorses satisfied parity and desires bilateral salpingectomy if possible. Aware that depending on adhesions, access to fallopian tubes may be limited. )(Operative findings: 1. Normal appearing uterus, bilateral fallopian tubes and ovaries 2. Filmy adhesions between peritoneum and uterus 3. Low transverse hysterotomy without extensions )(Complications: none )( QBL (ml's): 600 )(Specimens removed/altered: fallopian tubes Fluids: 1200cc Urine output: 50cc Disposition: stable Counts: Sponge count: correct Instrument count: correct Needle count: correct Cottonoid count: correct Blood Loss/Details Blood loss at delivery: no more than expected at 1035 RPT #:[id number] END OF REPORT [facility] 2020-08-20 08:44:00 [facility] ([facility] OB Admission / H P REPORT#:[id number] REPORT STATUS: Signed DATE:08/20/20 TIME: 08 PATIENT: SHORTY GUTIERREZ UNIT #: [id number] ROOM/BED: [facility] : 85 AGE: 34 SEX: F ATTEND: Marissa Sarmiento MD ADM AUTHOR: Marissa Sarmiento MD * ALL edits or amendments must be made on the electronic/computer document * OB History Chief complaint: scheduled HPI: 34 yo @ 36w3d with PNC c/b prior C/S x 3, IUFD at 37 weeks in prior , 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 Patient without complaints. +FM. Denies ctx, VB, LOF. Desires bilateral salpingectomy if able to visualize fallopian tubes. history: : 9 Term: 3 Abortus: 5 Living children: 2 Complications (prev preg): clotting disorder (?APLS), demise (prior ) Previous : low uterine trans incis (x 3) Number of prev : 3 Current : Admission EGA (weeks) 36 Admission EGA (days) 3 Conditions of : recurrent loss, history of term 37 wk IUFD prior Labs: Blood type: A Rh: positive Rubella: immune Hepatitis B: negative HIV: negative STD: negative Syphilis: currently negative GBS: unknown Procedures: cerclage Past History Past Medical History: Reports: Anemia, Depression/mood disorder. Past Surgical History: Reports: . Family History Reports: Diabetes. Alcohol Use Denies EtOH use Drug Use Denies recreational drugs Smoking status: Smoking status for patients 13 years old or older: Never Smoker Allergies: Coded Allergies: dextromethorphan HBr (From NyQuil) (Mild, HIVES 05/21/20) doxylamine (From NyQuil) (Mild, HIVES 05/21/20) Objective General VS: Last Documented: Result Date Time B/P Mean 96.0 08/20 0741 B/P 124/08/20 0741 Pulse 77 08/20 0741 Vital Signs Date Temp Pulse Resp B/P B/P Mean Pulse Ox FiO2 08/20 77 124/77 96.0 PATIENT WEIGHT: Weight (lb): 165 Weight (oz): Weight (kg): 74.843 Physical Exam Abdomen: gravid, no abnormal tenderness, no guarding Uterine activity: Monitor: toco Frequency (description): none Membranes: Membranes: Intact Lower extremities: Edema: none Baby A: Baby A FHR category: category 1 Result Findings/Data: Laboratory Tests: 08/20 0745 Chemistry Sodium (135 - 145 mEq/L) 140 Potassium (3.5 - 5.0 mEq/L) 3.5 Chloride (100 - 115 mEq/L) 104 Carbon Dioxide (22 - 31 mEq/L) 23 Anion Gap (10 - 20) 16.10 BUN (7 - 18 mg/dL) 9 Creatinine (0.5 - 1.0 mg/dL) 0.7 Glomerular Filtr Rate (>60 ml/min) 96 Glucose (65 - 110 mg/dL) 98 Calcium (8.4 - 10.2 mg/dL) 8.6 Total Bilirubin (0.2 - 1.0 mg/dL) 0.2 AST (15 - 37 units/L) 14 L ALT (12 - 78 units/L) 13 Total Alk Phosphatase (46 - 116 units/L) 116 Total Protein (6.3 - 8.2 gm/dL) 6.9 Albumin (3.4 - 4.8 gm/dL) 2.9 L Hematology WBC (6.5 - 12.3 K/mm3) 10.9 RBC (3.51 - 4.69 M/mm3) 3.72 Hgb (10.1 - 13.8 g/dL) 9.9 L Hct (32.5 - 41.8 %) 32.0 L MCV (84.6 - 96.6 fL) 86.0 MCH (27.3 - 33.9 pg) 26.6 L MCHC (32.0 - 34.2 gm/dL) 30.9 L RDW (12.2 - 16.3 %) 13.4 Plt Count (134 - 363 K/mm3) 295 MPV (9.2 - 12.7 fL) 10.2 Neut % (Auto) (57.9 - 77.3 %) 70.0 Lymph % (Auto) (14.5 - 29.7 %) 19.2 [place] % (Auto) (3.6 - 10.2 %) 9.3 Eos % (Auto) (0.0 - 3.0 %) 0.6 Baso % (Auto) (0.1 - 0.9 %) 0.2 Neut # (Auto) (K/mm3) 7.6 Lymph # (Auto) (K/mm3) 2.1 [place] # (Auto) (K/mm3) 1.0 Eos # (Auto) (K/mm3) 0.07 Baso # (Auto) (K/mm3) 0.0 Serology Treponema pallidum Ab (NONREACTIVE) NONREACTIVE Hep Bs Antigen (NONREACTIVE) NONREACTIVE Diagnosis, Assessment Plan Diagnosis, Assessment Plan Free Text A P: 34 yo @ 36w3d with PNC c/b prior C/S x 3, IUFD at 37 weeks in prior , 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 Patient is NPO since midnight. Lovenox held for 24 hours, will restart 12 hours postop. Will proceed with scheduled . Assessment/Impression: previous C/S, for repeat, normal FHR pattern Plan: admit to inpatient, scheduled , DVT prophylaxis (Lovenox postop) Reason-sched C section: prior uterine surgery Plan discussed with: patient, spouse/partner at [address] [facility] #:[id number] END OF REPORT [facility] 2020-05-28 06:08:00 [id number] [facility] [place] [id number] PATIENT NAME: SHORTY GUTIERREZ ADMIT DATE: 05/21/20 ACCOUNT NO: [id number] ROOM NO: [facility] AGE: 34 SEX: F ADMITTING PHYSICIAN: Marissa Sarmiento MD ATTENDING PHYSICIAN: Marissa Sarmiento MD OPERATION DATE: 05/22/2020 PREOPERATIVE DIAGNOSES: 1. Intrauterine at 23.4 weeks. 2. Cervical shortening. POSTOPERATIVE DIAGNOSES: 1. Intrauterine at 23.4 weeks. 2. Cervical shortening. PROCEDURE: Rescue Araya cerclage. SURGEON: Anjana Servin MD. [employer]ETING [employer]IST[employer] DIVISION: ANESTHESIA: COMPLICATIONS: None. ESTIMATED BLOOD LOSS: 25 mL. INTRAVENOUS FLUIDS: 700 mL LR. URINE OUTPUT: 50 mL clear at the beginning of the procedure. FINDINGS: Normal external genitalia. Cervix was 1 cm dilated. No bleeding. No bulging membranes. PROCEDURE IN DETAIL: After the risks including, but not limited to, rupture of membranes, infection, loss, benefits, nature and other alternatives were discussed with the patient at length, she voiced understanding, all her questions were answered to satisfaction and she signed consent. She was taken to the operating room where general anesthesia was found to be adequate. She was then prepared and draped in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
[2024-06-10] MEDS ORDERED: KETOROLAC 30 MG/ML INJ ONE (17:28)
[2024-06-10 18:04] LABS: Absolute Lymphocytes (CBC) 1.5 K/uL (0.7-4.9); Absolute Monocytes 0.5 K/uL (0.1-1.3); Absolute Neutrophil 5.7 K/uL (1.8-8.0); Basophils % 0.3 % (0-1.3); Eosinophils % 0.3 % (0-4.4); Hematocrit 35.7 % (36.0-45.0); Hemoglobin 12.1 g/dL (12.0-15.0); Lymphocytes % 18.9 % (15.3-44.8); MCH 26.5 pg (27.0-35.0); MCHC 33.8 g/dL (32.0-36.0); MCV 78.3 fL (80-100); Monocytes % 6.4 % (3.3-12.3); Neutrophils % 74.1 % (41.7-73.7); Platelets 331 thou/uL (152-406); RBC Red Blood Cell Count 4.55 M/uL (3.86-4.86); Red Cell Distribution Width 15.4 % (12.1-15.2)
[2024-06-10 18:11] LABS: Urine Bacteria <20 /HPF (<20); Urine Bilirubin NEGATIVE (Negative); Urine Blood 1+ (Negative); Urine Clarity Extremely Turbid (Clear); Urine Color Light-Yellow (Yellow); Urine Culture Reflex Order NOT NEEDED; Urine Glucose NEGATIVE (Negative); Urine Ketones NEGATIVE (Negative); Urine Microscopic Reflex YN ORDER UMIC; Urine Mucus 2+ /HPF (None Seen); Urine Nitrite NEGATIVE (Negative); Urine Protein NEGATIVE (Negative); Urine Urobilinogen Normal (Normal); Urine Yeast (Budding) Trace /HPF (None Seen); Urine pH 5.5 (5.0-7.0)
--- NOTE | 2024-06-10 18:11 | RAD REPORT ---
EXAMINATION: ONE VIEW CHEST XR CLINICAL INDICATION: Female, 38 years old.,CHEST PAIN TECHNIQUE: Frontal chest projection is submitted. Examination is limited by patient positioning and t echnique. COMPARISON: 03/09/2019 FINDINGS: The lungs are well inflated and clear. No pneumothorax or sizable effusion. The heart is normal in s ize. Mediastinal contours are unremarkable. IMPRESSION: No acute intrathoracic abnormalities.
[2024-06-10 18:12] LABS: PT Prothrombin Time 11.6 SECONDS (10-13.0); Protime INR 1.02
[2024-06-10 18:23] LABS: D-Dimer < 0.215 FEUug/mL (0-0.500)
[2024-06-10 18:24] LABS: ALT/SGPT 29 U/L (13-56); AST/SGOT 15 U/L (15-37); Albumin 4.1 g/dL (3.4-5.0); Albumin/Globulin Ratio 1.1 (1.1-1.8); Alkaline Phosphatase 71 U/L (45-117); Anion Gap 8.6 mEq/L (5.0-15.0); BUN Blood Urea Nitrogen 9 mg/dL (7-18); Bicarbonate 26 mEq/L (21-32); Bilirubin Direct < 0.2 mg/dL (0-0.2); Bilirubin Indirect, Calculated 0.2 mg/dL (0.2-0.8); Bilirubin Total 0.4 mg/dL (0.2-1.0); Globulin 3.7 g/dL (2.3-3.5); Glomerular Filtration Rate 94 ml/min (=/>90); Glucose Level 100 mg/dL (74-106); Lipase 41 U/L (13-75); Magnesium 2.1 mg/dL (1.6-2.4); NT PRO-BNP 36 pg/mL (<125); Potassium 3.6 mEq/L (3.5-5.1); Protein, Total 7.8 g/dL (6.4-8.2); Sodium Level 137 mEq/L (136-145); Troponin High Sensitivity < 3.0 pg/mL (<58.9)
[2024-06-10] MEDS ORDERED: dexAMETHasone 10 MG/ML VIAL ONE (19:11)
[2024-06-10] MEDS ORDERED: METHOCARBAMOL 1,000 MG/10 ML VIAL ONE (19:11)
[2024-06-10] MEDS ORDERED: HYDROCODONE/APAP 10/325 TAB ONE (19:11)
[2024-06-10] MEDS ORDERED: NA CHLORIDE 0.9% 100 ML ONE (19:12)
--- NOTE | 2024-06-10 19:52 | RAD REPORT ---
EXAM: CT Chest For Pe Angio TECHNIQUE: CT angiogram of the chest was performed following intravenous contrast administration, inc luding sagittal and coronal as well as maximum intensity projection reformats. One or more of the following dose reduction techniques were used: Automated exposure control, adjustment of the mA and k V according to patient size, and iterative reconstruction. Unless otherwise specified, incidental findings do not require dedicated imaging follow-up. INDICATION: right lower lateral chest pain COMPARISON: 06/10/2024. FINDINGS: LINES/TUBES: None. PULMONARY ARTERIES: Main pulmonary arteries are normal in caliber. No filling defects within the pul monary arteries to suggest pulmonary embolus. LUNGS AND AIRWAYS: The lungs and central airways are normal without focal abnormality. PLEURA: No effusion or pneumothorax. HEART AND MEDIASTINUM: The visualized thyroid gland is normal. No mediastinal, hilar, or axillary lym phadenopathy. Heart is unremarkable. No pericardial effusion. SOFT TISSUES AND BONES: No acute osseous abnormality. No significant soft tissue finding. UPPER ABDOMEN: Unremarkable. IMPRESSION: No evidence of acute central pulmonary emboli. No suspicious intrathoracic findings..
--- NOTE | 2024-06-10 20:10 | ER ---
Nurse's Notes [facility] Name: Nat Cortez Age: 38 yrs Sex: Female : 1985 Arrival Date: 06/10/2024 Time: 16:28 Bed 17 Private MD: Diagnosis: UTI/ Urinary tract infection, site not specified;Muscle spasm Presentation: 06/10 16:49 Chief complaint: Patient states: right sided chest pain that suddenly started "after aa5 getting up from the couch". Pt reports palpitations that have resolved. Coronavirus screen: At this time, the client does not indicate any symptoms associated with coronavirus-19. Ebola Screen: Patient denies travel to an Ebola-affected area in the 21 days before illness onset. Initial Sepsis Screen: Does the patient meet any 2 criteria? No. Patient's initial sepsis screen is negative. Does the patient have a suspected source of infection? No. Patient's initial sepsis screen is negative. Risk Assessment: Do you want to hurt yourself or someone else? Patient reports no desire to harm self or others. Onset of symptoms was June 10, 2024. 16:49 Method Of Arrival: Ambulatory aa5 16:49 Acuity: TONYA 3 aa5 Historical: - Allergies: 16:46 Nyquil; aa5 - PMHx: 16:46 APS; Asthma; Antiphospholipid syndrome (Unknown); aa5 - PSHx: 16:46 section; aa5 - Immunization history:: Adult Immunizations unknown. - Infectious Disease History:: Denies. - Social history:: Smoking status: Patient denies any tobacco usage or history of. Screenin:58 [facility] ED Fall Risk Assessment (Adult) History of falling in the last 3 months, cm10 including since admission No falls in past 3 months (0 pts) Confusion or Disorientation No (0 pts) Intoxicated or Sedated No (0 pts) Impaired Gait No (0 pts) Mobility Assist Device Used No (0 pt) Altered Elimination No (0 pt) Score/Fall Risk Level 0 - 2 = Low Risk Oriented to surroundings, Maintained a safe environment, Hourly rounding (assess needs \\T\\ fall precautionary measures) done. Abuse screen: Denies threats or abuse. Denies injuries from another. Nutritional screening: No deficits noted. Tuberculosis screening: No symptoms or risk factors identified. Assessment: 18:00 General: Appears in no apparent distress. uncomfortable, Behavior is calm, cooperative. cm10 Pain: Complains of pain in right lateral anterior chest and right axilla Pain currently is 10 out of 10 on a pain scale. Pain began suddenly. Neuro: No deficits noted. Level of Consciousness is awake, alert, obeys commands, Oriented to person, place, time, situation, Appropriate for age. Cardiovascular: Heart tones present Patient's skin is warm and dry. Rhythm is regular. Respiratory: No deficits noted. Airway is patent Respiratory effort is even, unlabored, Respiratory pattern is regular, symmetrical, Breath sounds are clear bilaterally. Musculoskeletal: Reports pain in right axilla. 18:56 Reassessment: Patient appears in no apparent distress at this time. Patient and/or cm10 family updated on plan of care and expected duration. Pain level reassessed. Patient is alert, oriented x 3, equal unlabored respirations, skin warm/dry/pink. 19:10 General: Appears in no apparent distress. comfortable, Behavior is calm, cooperative. rg5 19:10 Pain: Complains of pain in right upper quadrant Quality of pain is described as aching. rg5 Neuro: Level of Consciousness is awake, alert, obeys commands, Oriented to person, place, time, situation. Cardiovascular: Patient's skin is warm and dry. Rhythm is regular. Respiratory: Airway is patent Respiratory effort is even, unlabored, Respiratory pattern is regular, symmetrical. Vital Signs: 16:49 BP 122 / 75; Pulse 76; Resp 14 S; Temp 98.3(O); Pulse Ox 100% on R/A; Weight 72.57 kg aa5 (R); Height 5 ft. 3 in. (R); 18:00 BP 116 / 73; Pulse 76; Resp 15; Pulse Ox 98% on R/A; cm10 18:30 BP 108 / 67; Pulse 69; Resp 17; Pulse Ox 99% on R/A; cm10 19:10 BP 110 / 68; Pulse 70; Resp 18; Pulse Ox 99% on R/A; Pain 5/10; rg5 20:20 BP 118 / 71; Pulse 68; Resp 18; Pulse Ox 99% on R/A; Pain 3/10; rg5 16:49 Body Mass Index 28.34 (72.57 kg, 160.02 cm) aa5 19:10 Pain Scale: Adult rg5 20:20 Pain Scale: Adult rg5 ED Course: 16:30 Patient arrived in ED. im 16:36 Brandyn Rausch PA is PHCP. cp 16:37 Vernon Lucero MD is Attending Physician. cp 16:46 Arm band placed on. aa5 16:51 Triage completed. aa5 17:09 XRAY Chest (1 view) In Process Unspecified. EDMS 17:31 Sophie Benavides, RN is Primary Nurse. cm10 17:45 Initial lab(s) drawn, by de, sent to lab. Urine collected: clean catch specimen, EKG cm10 done, by ED staff, reviewed by Brandyn KELLY. Inserted saline lock: 20 gauge in left antecubital area, using aseptic technique. Blood collected. Flushed with 10 mL NS. 17:57 Lipase Sent. cm10 17:57 Basic Metabolic Panel Sent. cm10 17:57 CBC with Diff Sent. cm10 17:57 D-Dimer Sent. cm10 17:57 LFT's Sent. cm10 17:57 Magnesium Sent. cm10 17:57 NT PRO-BNP Sent. cm10 17:57 PT-INR Sent. cm10 17:57 Troponin HS Sent. cm10 17:57 Test, Urine Sent. cm10 17:57 Urinalysis w/ reflexes Sent. cm10 17:58 Patient has correct armband on for positive identification. Bed in low position. Call cm10 light in reach. Side rails up X2. Provided Education on: ER process and procedures.. Client placed on continuous cardiac and pulse oximetry monitoring. NIBP monitoring applied. school lunch monitor on. 19:00 Report given to PHOEBE Baptiste. cm10 19:03 Emile Parish, PHOEBE is Primary Nurse. rg5 19:18 PHCP role handed off by Brandyn Rausch PA dr5 19:18 Jakub Amaya FNP-C is PHCP. dr5 19:39 CT Chest For PE Angio In Process Unspecified. EDMS 20:25 IV discontinued, bleeding controlled, No redness/swelling at site. Pressure dressing rg5 applied. 20:25 No provider procedures requiring assistance completed. rg5 Administered Medications: 17:45 Drug: Ketorolac IVP 15 mg IVP once Route: IVP; Site: left antecubital; cm10 18:56 Follow up: Response: No adverse reaction cm10 19:21 Drug: Methocarbamol IVPB 1 grams IVPB once over 1 hrs; (mix in NS 100 mL) Route: IVPB; rg5 Infused Over: 1 hrs; Site: left antecubital; 20:22 Follow up: IV Status: Completed infusion; IV Intake: 100ml rg5 19:21 Drug: Dexamethasone IVP 10 mg IVP once; (not to exceed 40 mg) Route: IVP; Site: left rg5 antecubital; 20:22 Follow up: Response: No adverse reaction; Pain is decreased rg5 19:21 Drug: HYDROcodone-acetaminophen PO 10 mg-325 mg 1 tabs PO once Route: PO; rg5 20:22 Follow up: Response: No adverse reaction; Pain is decreased rg5 Medication: 17:59 VIS not applicable for this client. cm10 Intake: 20:22 IV: 100ml; Total: 100ml. rg5 Outcome: 20:09 Discharge ordered by . dr5 20:25 Discharged to home ambulatory, rg5 20:25 Condition: stable 20:25 Discharge instructions given to patient, Instructed on discharge instructions, Demonstrated understanding of instructions, follow-up care, Prescriptions given X 4, 20:26 Patient left the ED. rg5 Signatures: Dispatcher [employer] EDMS Elana Grant, RN RN aa5 Brandyn Rausch PA PA cp Mendoza, Itzel im Martinez, Clarissa, RN RN cm10 Emile Parish RN RN rg5 Jakub Amaya, SUBWAY TRAIN DRIVER-C SUBWAY TRAIN DRIVER-Cdr5
--- NOTE | 2024-06-10 20:10 | EDPHYS ---
Physician Documentation [facility] Name: Nat Cortez Age: 38 yrs Sex: Female : 1985 Arrival Date: 06/10/2024 Time: 16:28 Bed 17 Private MD: ED Physician Vernon Lucero HPI: 06/10 16:40 This 38 yrs old Female presents to ER via Unassigned with complaints of Painful cp breathing, Palpitations, Side breast pain. 16:40 The patient or guardian reports chest pain that is located primarily in the right lower cp lateral posterior chest and right lower lateral anterior chest. 16:40 The pain does not radiate. Associated signs and symptoms: Pertinent positives: cp palpitations, shortness of breath. The chest pain is described as constant. Duration: The patient or guardian reports a single episode, that is still ongoing. Historical: - Allergies: 16:46 Nyquil; aa5 - PMHx: 16:46 APS; Asthma; Antiphospholipid syndrome (Unknown); aa5 - PSHx: 16:46 section; aa5 - Immunization history:: Adult Immunizations unknown. - Infectious Disease History:: Denies. - Social history:: Smoking status: Patient denies any tobacco usage or history of. ROS: 16:45 Constitutional: Negative for body aches, chills, fever, poor PO intake, cp 16:45 Eyes: Negative for injury, pain, redness, and discharge, cp 16:45 ENT: Negative for drainage from ear(s), ear pain, sore throat, difficulty swallowing, difficulty handling secretions, 16:45 Cardiovascular: Positive for chest pain, of the right lateral lower chest wall, Negative for edema, palpitations, 16:45 Respiratory: Positive for shortness of breath, Negative for cough, wheezing, 16:45 Abdomen/GI: Negative for abdominal pain, vomiting, diarrhea, constipation, 16:45 Skin: Negative for cellulitis, rash, 16:45 Neuro: Negative for altered mental status, dizziness, headache, syncope, weakness, 16:45 All other systems are negative, Exam: 16:50 Head/Face: Normocephalic, atraumatic. cp 16:50 Constitutional: The patient appears in no acute distress, alert, awake, non-diaphoretic, non-toxic, well developed, well nourished, uncomfortable, overweight 16:50 Eyes: Periorbital structures: appear normal, Conjunctiva: normal, no exudate, no injection, Sclera: no appreciated abnormality, Lids and lashes: appear normal, bilaterally, 16:50 ENT: External ear(s): are unremarkable, Nose: is normal, Mouth: Lips: moist, Oral mucosa: moist, Posterior pharynx: Airway: no evidence of obstruction, patent, 16:50 Neck: ROM/movement: is normal, is supple, without pain, no range of motions limitations, 16:50 Chest/axilla: Inspection: normal, Palpation: crepitus, is not appreciated, tenderness, that is severe, of the right lower lateral posterior chest and right lower lateral anterior chest, 16:50 Cardiovascular: Rate: normal, Rhythm: regular, Edema: is not appreciated, JVD: is not appreciated, 16:50 Respiratory: the patient does not display signs of respiratory distress, Respirations: labored breathing, is not present, shallow respirations, that is moderate, Breath sounds: are clear throughout, no decreased breath sounds, no stridor, no wheezing, 16:50 Abdomen/GI: Inspection: abdomen appears normal, Palpation: abdomen is soft and non-tender, in all quadrants, 16:50 Skin: cellulitis, is not appreciated, no rash present. 16:50 Neuro: Motor: moves all fours, strength is normal, Gait: is steady, at a normal pace, without difficulty, 17:56 ECG was reviewed by the Attending Physician. cp Vital Signs: 16:49 BP 122 / 75; Pulse 76; Resp 14 S; Temp 98.3(O); Pulse Ox 100% on R/A; Weight 72.57 kg aa5 (R); Height 5 ft. 3 in. (R); 18:00 BP 116 / 73; Pulse 76; Resp 15; Pulse Ox 98% on R/A; cm10 18:30 BP 108 / 67; Pulse 69; Resp 17; Pulse Ox 99% on R/A; cm10 19:10 BP 110 / 68; Pulse 70; Resp 18; Pulse Ox 99% on R/A; Pain 5/10; rg5 20:20 BP 118 / 71; Pulse 68; Resp 18; Pulse Ox 99% on R/A; Pain 3/10; rg5 16:49 Body Mass Index 28.34 (72.57 kg, 160.02 cm) aa5 19:10 Pain Scale: Adult rg5 20:20 Pain Scale: Adult rg5 MDM: 16:50 Medical Screening Exam initiated cp 20:00 Transition of care: Care assumed from Brandyn KELLY. ED course: Pending CT PE. If dr5 negative patient can be discharged home. Patient reports she is feeling much better on discharge. Strict ER precautions given. All labs printed and given to patient. Recommended patient follow-up primary care doctor this week. 06/11 00:49 Differential diagnosis: costochondritis, PE, Pancreatitis, radiculopathy. Data dr5 reviewed: vital signs, nurses notes. 06/10 16:44 Order name: Urinalysis w/ reflexes; Complete Time: 18:12 cp 06/10 18:12 Interpretation: Normal except: [facility] Extremely Turbid; UBLD 1+; UESTR 250; URBC 5-10; cp BYST Trace. 06/10 16:44 Order name: Test, Urine; Complete Time: 18:12 cp 06/10 16:44 Order name: Basic Metabolic Panel; Complete Time: 18:35 cp 06/10 18:35 Interpretation: Reviewed. 06/10 16:44 Order name: CBC with Diff; Complete Time: 18:12 cp 06/10 18:13 Interpretation: Normal except: HCT 35.7; MCV 78.3; MCH 26.5; RDW 15.4; ANAND% 74.1. cp 06/10 16:44 Order name: D-Dimer; Complete Time: 18:35 cp 06/10 16:44 Order name: LFT's; Complete Time: 18:35 cp 06/10 16:44 Order name: Magnesium; Complete Time: 18:35 cp 06/10 16:44 Order name: NT PRO-BNP; Complete Time: 18:35 cp 06/10 16:44 Order name: PT-INR; Complete Time: 18:35 cp 06/10 16:44 Order name: Troponin HS; Complete Time: 18:35 cp 06/10 16:44 Order name: Lipase; Complete Time: 18:35 cp 06/10 16:44 Order name: XRAY Chest (1 view); Complete Time: 18:12 cp 06/10 18:13 Interpretation: Report review. cp 06/10 18:59 Order name: CT Chest For PE Angio; Complete Time: 19:57 cp 06/10 16:44 Order name: Cardiac monitoring; Complete Time: 17:57 cp 06/10 16:44 Order name: EKG - Nurse/Tech; Complete Time: 17:57 cp 06/10 16:44 Order name: IV Saline Lock; Complete Time: 17:57 cp 06/10 16:44 Order name: Labs collected and sent; Complete Time: 17:57 cp 06/10 16:44 Order name: O2 Per Protocol; Complete Time: 17:57 cp 06/10 16:44 Order name: O2 Sat Monitoring; Complete Time: 17:57 cp EC/13 17:56 Rate is 69 beats/min. Rhythm is regular. ME interval is normal. QRS interval is normal. cp QT interval is normal. T waves are Inverted in lead aVR. Interpreted by me. Reviewed by me. Administered Medications: 17:45 Drug: Ketorolac IVP 15 mg IVP once Route: IVP; Site: left antecubital; cm10 18:56 Follow up: Response: No adverse reaction cm10 19:21 Drug: Methocarbamol IVPB 1 grams IVPB once over 1 hrs; (mix in NS 100 mL) Route: IVPB; rg5 Infused Over: 1 hrs; Site: left antecubital; 20:22 Follow up: IV Status: Completed infusion; IV Intake: 100ml rg5 19:21 Drug: Dexamethasone IVP 10 mg IVP once; (not to exceed 40 mg) Route: IVP; Site: left rg5 antecubital; 20:22 Follow up: Response: No adverse reaction; Pain is decreased rg5 19:21 Drug: HYDROcodone-acetaminophen PO 10 mg-325 mg 1 tabs PO once Route: PO; rg5 20:22 Follow up: Response: No adverse reaction; Pain is decreased rg5 Disposition: 06/11 10:55 Co-signature as Attending Physician, Vernon Lucero MD I reviewed the patient's care rn provided by the Advanced Practice Provider and agree with the diagnosis and treatment plan. Disposition Summary: 06/10/24 20:09 Discharge Ordered Notes: Location: Home dr5 Condition: Stable dr5 Diagnosis - UTI/ Urinary tract infection, site not specified dr5 - Muscle spasm dr5 Followup: dr5 - With: Emergency Department - When: As needed - Reason: Worsening of condition Followup: dr5 - With: Private Physician - When: 1 - 2 days - Reason: Recheck today's complaints, Continuance of care, Re-evaluation by your physician Discharge Instructions: - Discharge Summary Sheet dr5 - Urinary Tract Infection, Adult, [id number] dr5 Forms: - Medication Reconciliation Form dr5 - Antibiotic Education dr5 - Prescription Opioid Use dr5 - Patient Portal Instructions dr5 - Leadership Thank You Letter dr5 Prescriptions: - Cephalexin 500 mg Oral Capsule - take 1 capsule ORAL route every 12 hours for 10 days; 20 capsule; Refills: 0, dr5 Product Selection Permitted - Cyclobenzaprine 10 mg Oral Tablet - take 1 tablet ORAL route every 8 hours As needed; 30 tablet; Refills: 0, dr5 Product Selection Permitted - Fluconazole 150 mg Oral tablet - take 1 tablet ORAL route one time; 1 tablet; Refills: 0, Product Selection dr5 Permitted - Tramadol 50 mg Oral Tablet - take 1 tablet ORAL route every 8 hours as needed; 12 tablet; Refills: 0, dr5 Product Selection Permitted Signatures: Dispatcher [employer] EDMS Vernon Lucero MD MD rn Calderon, Audri, RN RN aa5 Brandyn Rausch PA PA cp Martinez, Clarissa RN RN cm10 Emile Parish RN RN rg5 Jakub Amaya, TRACKMOBILE OPERATOR-C TRACKMOBILE OPERATOR-Cdr5 Corrections: (The following items were deleted from the chart) 06/10 16:45 16:45 Urinalysis+U.LAB.BRZ ordered. EDMS EDMS 16:45 16:45 Test, Urine+UC.LAB.BRZ ordered. EDMS EDMS 16:45 16:45 BASIC METABOLIC PANEL+C.LAB.BRZ ordered. EDMS EDMS 16:45 16:45 CBC+H.LAB.BRZ ordered. EDMS EDMS 16:45 16:45 D-DIMER+COAG.LAB.BRZ ordered. EDMS EDMS 16:45 16:45 HEPATIC FUNCTION+C.LAB.BRZ ordered. EDMS EDMS 16:45 16:45 MAGNESIUM+C.LAB.BRZ ordered. EDMS EDMS 16:45 16:45 PROBNP+C.LAB.BRZ ordered. EDMS EDMS 16:45 16:45 PROTIME (+INR)+COAG.LAB.BRZ ordered. EDMS EDMS 16:45 16:45 Troponin High Sensitivity+C.LAB.BRZ ordered. EDMS EDMS 16:45 16:45 LIPASE+C.LAB.BRZ ordered. EDMS EDMS 16:45 16:45 Chest Single View+RAD.RAD.BRZ ordered. EDMN EDMS 19:06/09 16:50 Constitutional: The patient appears in no acute distress, alert, awake, cp non-diaphoretic, non-toxic, well developed, well nourished, uncomfortable, overweight cp 06/10 19:06/09 16:50 Head/Face: Normocephalic, atraumatic. cp cp 06/10 19:06/09 16:50 Eyes: Periorbital structures: appear normal, Conjunctiva: normal, no cp exudate, no injection, Sclera: no appreciated abnormality, Lids and lashes: appear normal, bilaterally, cp 06/10 19:06/09 16:50 ENT: External ear(s): are unremarkable, Nose: is normal, Mouth: Lips: cp moist, Oral mucosa: moist, Posterior pharynx: Airway: no evidence of obstruction, patent, cp 06/10 19:06/09 16:50 Neck: ROM/movement: is normal, is supple, without pain, no range of motions cp limitations, cp 06/10 18:06/09 16:50 Chest/axilla: Inspection: normal, Palpation: crepitus, is not appreciated, cp tenderness, that is severe, of the right lower lateral posterior chest and right lower lateral anterior chest, cp 06/10 18:06/09 16:50 Cardiovascular: Rate: normal, Rhythm: regular, Edema: is not appreciated, cp JVD: is not appreciated, cp 06/10 18:06/09 16:50 Respiratory: the patient does not display signs of respiratory distress, cp Respirations: labored breathing, is not present, shallow respirations, that is moderate, Breath sounds: are clear throughout, no decreased breath sounds, no stridor, no wheezing, cp 06/10 18:06/09 16:50 Abdomen/GI: Inspection: abdomen appears normal, Palpation: abdomen is soft cp and non-tender, in all quadrants, cp 06/10 18:06/09 16:50 Skin: cellulitis, is not appreciated, no rash present. cp cp 06/10 18:06/09 16:50 Neuro: Motor: moves all fours, strength is normal, Gait: is steady, at a cp normal pace, without difficulty, cp
[2024-06-10 20:30] VITALS: TEMP 98.3
[2024-06-10 20:33] VITALS: O2SAT 99
[2024-06-10 20:37] VITALS: BP 118/71
--- NOTE | 2024-06-11 10:48 | EKG ---
Test Date: 2024-06-10 Test Time: 17:50:51 Processing Specialist: ERASMO MEASUREMENT RESULTS: Intervals: Rate: 69 WY: 164 QRSD: 80 QT: 410 QTc: 439 Webster: P: 45 WY: 164 QRS: 39 T: 58 INTERPRETIVE STATEMENTS: Normal sinus rhythm Normal ECG No previous ECG available for comparison Electronically Signed On 06-11-24 10:47:02 CDT by Jose Minor
== END 2024-06-10 20:26 | disposition home or self-care (01) ==
LOC: ER 16:28
DX: N39.0 Urinary tract infection, site not specified (principal); M62.838 Other muscle spasm
CPT/HCPCS: 96365; 93005; 85025; 81001; 80048; 36415; 83735; 81025; 85610; 85379; 80076; 84484; 83690; 83880; 71275; 71045; 96375; 99285; Q9967; J1100; J2800